=== PATIENT | male | born 2000 | race Caucasian/White ===

== ENCOUNTER 2021-10-08 15:53 | Emergency (ER) | payer OTHER, SELFPAY ==
[2021-10-08 16:14] VITALS: BP 135/77; PULSE 112; RESP 14; TEMP 36.6; O2SAT 100
--- NOTE | 2021-10-08 17:03 | ED.GENADULT ---
HPI - General Adult General Chief complaint: Wound/Laceration Stated complaint: laceration Time Seen by Provider: 10/08/21 16:52 Source: patient, family and RN notes reviewed Mode of arrival: ambulatory Limitations: no limitations History of Present Illness HPI narrative: 21-year-old male presenting to the emergency department for evaluation of a laceration to his left lateral thigh. Patient states he was walking outside and fell into an old window that was sitting on the ground. Patient states he did lacerate his left thigh. Patient denies any other pain or injury. Bleeding was controlled upon arrival to the emergency department. Patient states that his tetanus is up-to-date. Related Data Allergies Allergy/AdvReac Type Severity Reaction Status Date / Time No Known Allergies Allergy Verified 10/08/21 16:31 Review of Systems Review of Systems: CONSTITUTIONAL: Denies fever, chills, or sweats. CARDIOVASCULAR: Denies chest pain, palpitations, or edema. RESPIRATORY: Denies cough or dyspnea. GASTROINTESTINAL: Denies abdominal pain, nausea, vomiting, or diarrhea. GENITOURINARY: Denies dysuria or hematuria. SKIN: laceration left thigh. MUSCULOSKELETAL: Denies back pain, joint pain, or myalgia. Exam Narrative: APPEARANCE: Well appearing, no pain, no distress, well-nourished. HEAD: normocephalic, atraumatic. RESPIRATORY: Airway patent, respirations nonlabored. Clear to auscultation bilaterally, no rales, rhonchi, wheezing. CARDIOVASCULAR: Regular rate and rhythm without murmurs rubs or gallops. ABDOMINAL: Soft, nontender, nondistended, normal bowel sounds MUSCULOSKELETAL: Moves all extremities. Strength/ROM intact, No edema, No calf tenderness. SKIN: 7 cm laceration to left lateral thigh, bleeding controlled upon arrival to the emergency room. Course Course Emergency Course: Patient's laceration was repaired as described in the procedure note. Patient was educated on wound care and on the importance of close follow-up with his primary care physician. Patient was educated on when to return for follow-up. All questions and concerns were addressed. Patient was improved and in no distress at time of discharge from the emergency department. Vital Signs Vital signs: Vital Signs Temperature 97.8 F 10/08/21 16:14 Pulse Rate 112 H 10/08/21 16:14 Respiratory Rate 14 10/08/21 16:14 Blood Pressure 135/77 10/08/21 16:14 Pulse Oximetry 100 10/08/21 16:14 Temperature 97.8 F 10/08/21 16:14 Pulse Rate 112 H 10/08/21 16:14 Respiratory Rate 14 10/08/21 16:14 Blood Pressure 135/77 10/08/21 16:14 Pulse Oximetry 100 10/08/21 16:14 Procedures Laceration Laceration 1: Date: 10/08/21 Time: 17:37 Site: lower extremity Side (If applicable): left Size (cm): 7 Depth: simple, single layer Local Anesthetic: lidocaine 1% Amount of anesthesia used (mL): 8 Pre-repair: wound explored, irrigated and irrigated extensively ====== Skin Level ====== Skin layer closed with: prolene Size (cm): 4-0 Number of sutures: 7 Technique: simple, interrupted ====== Subcutaneous Layer ====== ====== Muscle Layer ====== ====== Tendon Layer ====== Medical Decision Making Vital Signs Vital Signs: Vital Signs Temperature 97.8 F 10/08/21 16:14 Pulse Rate 112 H 10/08/21 16:14 Respiratory Rate 14 10/08/21 16:14 Blood Pressure 135/77 10/08/21 16:14 Pulse Oximetry 100 10/08/21 16:14 Temperature 97.8 F 10/08/21 16:14 Pulse Rate 112 H 10/08/21 16:14 Respiratory Rate 14 10/08/21 16:14 Blood Pressure 135/77 10/08/21 16:14 Pulse Oximetry 100 10/08/21 16:14 Discharge Plan Discharge Clinical Impression: Laceration Patient Disposition: Home, Self-Care Condition: Stable Instructions: Antibiotic Form, Care For Your Stitches (ED), Laceration (ED) Additional Instructions: Sutures will
== END 2021-10-08 17:59 | disposition home or self-care (01) ==
LOC: ANHED 17:48
PROVIDERS: Emergency Provider Emergency Medicine
DX: S71.112A Laceration without foreign body, left thigh, initial encounter (principal); W01.110A Fall on same level from slipping, tripping and stumbling with subsequent striking against sharp glass, initial encounter
CPT/HCPCS: 12002; 99282